=== PATIENT | male | born 1980 | race African-American/Black ===

== ENCOUNTER → 2020-03-01 | Outpatient (CLI) | payer BC, OTHER ==
[2015-11-04 23:06] VITALS: BP 136/84
--- NOTE | 2020-03-01 13:13 | CARD ---
MR#: [id number] Date of Study: 03/01/2020 Ordering Physician: KEMAR JOVEL, Referring Physician: KEMAR JOVEL, Tech: Alicia Birch SOLANGE APPROVED REPORT EXAM: Two-dimensional and M-mode echocardiogram with Doppler and color Doppler. Other Information Quality : Fair INDICATION Pre-Op RISK FACTORS Hypertension Obesity 2D DIMENSIONS RVDd3.0 (2.9-3.5cm)Left Atrium(2D)4.3 (1.6-4.0cm) IVSd1.3 (0.7-1.1cm)Aortic Root(2D)2.9 (2.0-3.7cm) LVDd4.5 (3.9-5.9cm)LVOT Diameter2.1 (1.8-2.4cm) PWd1.3 (0.7-1.1cm)LVDs2.8 (2.5-4.0cm) FS (%) 30.0 %SV64.9 ml LVEF(%)60.0 (>50%) Aortic Valve AoV Peak Syed.144.3cm/sAoV VTI25.7cm AO Peak GR.8.3mmHgLVOT Peak Syed.132.1cm/s AO Mean GR.4mmHgAVA (VMAX)3.19cm2 SILVANA (VTI)3.60cm2 Mitral Valve MV E Ukpjhtlp97.5cm/sMV DECEL [id number] MV A Yeznctzv31.9cm/sE/A Ratio1.1 Tricuspid Valve TR P. Qqllrtbi754po/sRAP [id number] TR Peak Gr.16xvJeOUOG74toIu Pulmonary Vein S1 Frxtdzwg58.8cm/sD2 Smcvbltp84.0cm/s LEFT VENTRICLE The left ventricle is normal size. There is normal left ventricular wall thickness. The left ventricu lar systolic function is normal and the ejection fraction is within normal range. The Ejection Fracti on is 55%. There is normal LV segmental wall motion. The left ventricular diastolic function and fill ing is normal for age. RIGHT VENTRICLE The right ventricle is normal size. The right ventricular systolic function is normal. ATRIA The left atrium is mildly dilated. The right atrium size is normal. The interatrial septum is intact with no evidence for an atrial septal defect or patent foramen ovale as noted on 2-D or Doppler imagi ng. AORTIC VALVE The aortic valve is normal in structure and function. Doppler and Color Flow revealed no significant aortic regurgitation. There is no significant aortic valvular stenosis. MITRAL VALVE The mitral valve is normal in structure and function. There is no evidence of mitral valve prolapse. There is no mitral valve stenosis. Doppler and Color Flow revealed no mitral valve regurgitation note d. TRICUSPID VALVE The tricuspid valve is normal in structure and function. Doppler and Color Flow revealed trace tricus pid regurgitation. The PA pressure was estimated at 33 mmHg. There is no tricuspid valve stenosis. PULMONIC VALVE The pulmonary valve is normal in structure and function. Doppler and Color Flow revealed no pulmonic valvular regurgitation. There is no pulmonic valvular stenosis. GREAT VESSELS The aortic root is normal in size. The ascending aorta is normal in size. The IVC is normal in size a nd collapses >50% with inspiration. PERICARDIAL EFFUSION There is no evidence of significant pericardial effusion. Critical Notification Critical Value: No <Conclusion> The left ventricular systolic function is normal and the ejection fraction is within normal range. Th e Ejection Fraction is 55%. There is normal LV segmental wall motion. Signed by : Robert Ford, Electronically Approved : 03/01/2020 13:12:59
== END | disposition home or self-care (01) ==
LOC: ECHO 07:40
PROVIDERS: ATTEND Internal Medicine Cardiovascular Disease
DX: Z01.810 Encounter for preprocedural cardiovascular examination (principal); I10 Essential (primary) hypertension
CPT/HCPCS: 93306